=== PATIENT | female | born 1945 | race African-American/Black ===

== ENCOUNTER → 2017-02-14 | Outpatient (CLI) | payer MEDICARE, OTHER ==
[~2017-02-14] MED LIST: AMLO5TAB96 PO; ASPI325T PO; CYCL5TAB PO; HYDR-2768 PO; HYDR-3133 PO; IPRA17I INH; LIPI40TA PO; LORT5TAB PO; MONT10TA2 PO; TAB-TAB PO; TRIA50 PO
[2017-02-14 11:09] LABS: AUTOMATED NEUTROPHIL # 3.8 TH/MM3 (1.8-7.7); BASOPHIL % 0.4 % (0.0-2.0); EOSINOPHIL # 0.4 TH/MM3 (0-0.4); HEMATOCRIT 33.9 % (35.0-46.0); LYMPH % 27.5 % (9.0-44.0); LYMPHOCYTE # 1.8 TH/MM3 (1.0-4.8); MEAN CELL VOLUME 71.3 FL (80.0-100.0); MEAN CORPUSCULAR HEMOGLOBIN 23.2 PG (27.0-34.0); MEAN CORPUSCULAR HGB CONC 32.6 % (32.0-36.0); MONO % 8.1 % (0.0-8.0); PLATELET COUNT 286 TH/MM3 (150-450); RED BLOOD COUNT 4.75 MIL/MM3 (4.00-5.30); RED CELL DISTRIBUTION WIDTH 17.5 % (11.6-17.2); WHITE BLOOD COUNT 6.6 TH/MM3 (4.0-11.0)
[2017-02-14 11:10] LABS: HEMO FLAGS AUTO DIFF
[2017-02-14 11:35] LABS: WESTERGREN SEDIMENTATION RATE 21 mm/hr (0-30)
[2017-02-14 11:37] LABS: RHEUMATOID FACTOR TRIGGER LESS THAN 10.0 IU/ML (0.0-14.9)
[2017-02-14 11:41] LABS: ALKALINE PHOSPHATASE 73 U/L (45-117); ALT (GPT) 16 U/L (10-53); ANION GAP 8 MEQ/L (5-15); AST (GOT) 14 U/L (15-37); BICARBONATE 27.8 MEQ/L (21.0-32.0); BLOOD UREA NITROGEN 20 MG/DL (7-18); CHLORIDE 104 MEQ/L (98-107); GLOMERULAR FILTRATION RATE 45 ML/MIN (>89); GLUCOSE,FASTING 94 MG/DL (74-99); POTASSIUM 3.5 MEQ/L (3.5-5.1); SODIUM (NA) 140 MEQ/L (136-145); TOTAL BILIRUBIN ADULT 0.5 MG/DL (0.2-1.0)
[2017-02-14 12:10] LABS: ACANTHOCYTES OCC (NORMAL); KERATOCYTES 1+ (NORMAL); OVALOCYTES 1+ (NORMAL)
[2017-02-14 12:11] LABS: HELMET CELLS OCC (NORMAL); SCAN/DIFF AUTO DIFF CONFIRMED
== END ==
LOC: CLAB 10:34
PROVIDERS: ATTEND Allergy & Immunology
DX: M05.741 Rheumatoid arthritis with rheumatoid factor of right hand without organ or systems involvement (principal); M81.0 Age-related osteoporosis without current pathological fracture; M47.22 Other spondylosis with radiculopathy, cervical region; Z79.899 Other long term (current) drug therapy
CPT/HCPCS: 36415; 80053; 85025; 85652; 86038; 86140; 86200; 86430

== ENCOUNTER → 2017-03-17 | Outpatient (CLI) | payer MEDICARE, OTHER ==
[2017-03-17 10:05] LABS: BICARBONATE 27.6 MEQ/L (21.0-32.0); MAGNESIUM 2.2 MG/DL (1.5-2.5); POTASSIUM 3.5 MEQ/L (3.5-5.1)
== END ==
LOC: CLAB 09:03
PROVIDERS: ATTEND Family Medicine
DX: N28.9 Disorder of kidney and ureter, unspecified (principal)
CPT/HCPCS: 36415; 80048; 83735

== ENCOUNTER → 2018-01-20 | Outpatient (CLI) | payer MEDICARE, OTHER ==
[2018-01-20 10:55] LABS: ALBUMIN 3.4 GM/DL (3.4-5.0); AST (GOT) 20 U/L (15-37); BICARBONATE 33.5 MEQ/L (21.0-32.0); BLOOD UREA NITROGEN 10 MG/DL (7-18); CALCIUM 9.1 MG/DL (8.5-10.1); CHLORIDE 109 MEQ/L (98-107); CREATININE 0.83 MG/DL (0.50-1.00); GLOMERULAR FILTRATION RATE 82 ML/MIN (>89); GLUCOSE,FASTING 98 MG/DL (74-99); SODIUM (NA) 146 MEQ/L (136-145)
[2018-01-20 10:58] LABS: ALKALINE PHOSPHATASE 70 U/L (45-117); ALT (GPT) 22 U/L (10-53); TOTAL BILIRUBIN ADULT 0.5 MG/DL (0.2-1.0)
[2018-01-20 11:10] LABS: AUTOMATED NEUTROPHIL # 3.7 TH/MM3 (1.8-7.7); BASOPHIL % 0.2 % (0.0-2.0); EOSINOPHIL # 0.4 TH/MM3 (0-0.4); EOSINOPHIL % 6.2 % (0.0-4.0); HEMATOCRIT 38.6 % (35.0-46.0); HEMOGLOBIN 12.3 GM/DL (11.6-15.3); LYMPH % 25.6 % (9.0-44.0); LYMPHOCYTE # 1.5 TH/MM3 (1.0-4.8); MEAN CORPUSCULAR HGB CONC 31.9 % (32.0-36.0); MEAN PLATELET VOLUME 9.1 FL (7.0-11.0); MONO % 7.4 % (0.0-8.0); MONOCYTE # 0.4 TH/MM3 (0-0.9); NEUT % 60.6 % (16.0-70.0); PLATELET COUNT 263 TH/MM3 (150-450); RED BLOOD COUNT 5.36 MIL/MM3 (4.00-5.30); RED CELL DISTRIBUTION WIDTH 17.3 % (11.6-17.2); WHITE BLOOD COUNT 6.1 TH/MM3 (4.0-11.0)
== END ==
LOC: CLAB 09:56
PROVIDERS: ATTEND Allergy & Immunology
DX: M67.912 Unspecified disorder of synovium and tendon, left shoulder (principal)
CPT/HCPCS: 36415; 80053; 85025